=== PATIENT | female | born 1995 | race Caucasian/White ===

== ENCOUNTER 2017-07-26 20:23 | Outpatient (CLI) | payer MEDICAID, OTHER ==
[~2017-07-26] VITALS: Ht 170.2 cm; Wt 108.2 kg
[2017-07-26 20:40] VITALS: BP 135/74
[2017-07-26] MEDS ORDERED: PREN1TAB86 PO (21:04)
[2017-07-26] MEDS ORDERED: LACTATED RINGERS 1,000 ML IV ONE (21:15)
[2017-07-26 21:30] VITALS: BP 121/73
[2017-07-26 23:13] VITALS: BP 121/73
--- NOTE | 2017-07-27 11:32 | Physician Query-Final Dx ---
TIANNA COPELAND 07/27/17 1132: Clinic Account Progress/Dx Physician Query: Please give diagnosis Date of Service Jul 26, 2017 at 20:23 HECTOR CHRISTOPHER MD 07/28/17 1142: Clinic Account Progress/Dx DIAGNOSIS: Diagnosis 32 weeks gestation Contractions without cervical change TIANNA COPELAND Jul 27, 2017 11:32 HECTOR CHRISTOPHER MD Jul 28, 2017 11:42
== END 2017-07-26 23:13 | disposition home or self-care (01) ==
LOC: WSo 20:23 → LDRP 20:23 → WSo 23:13
PROVIDERS: ATTEND Family Medicine
DX: O47.03 False labor before 37 completed weeks of gestation, third trimester (principal); Z3A.32 32 weeks gestation of pregnancy
CPT/HCPCS: 96360; 99214

== ENCOUNTER → 2017-08-23 | Outpatient (CLI) | payer MEDICAID ==
[~2017-08-23] MED LIST: PREN1TAB86 PO
--- NOTE | 2017-08-23 16:58 | Diagnostic Imaging Report ---
INDICATION: Preeclampsia. TECHNIQUE: The biophysical profile was performed in the routine fashion. FINDINGS: The fetus scored 2 out of 2 in breathing, movement, posture and tone, and amniotic fluid. The amniotic fluid index is 13.8 cm. The fetus is in cephalic presentation with a heart rate of 123 BPM. The placenta is anterior. IMPRESSION: The biophysical profile score is 8 out of 8 points. Dictated by: Dictated on workstation # [id number]
[2017-08-23 17:16] LABS: BASOPHILS % (AUTO) 0 % (0-10); EOSINOPHILS # (AUTO) 0.1 10^3/uL (0.0-0.3); EOSINOPHILS % (AUTO) 2 % (0-10); LYMPHOCYTES # (AUTO) 1.4 X 10^3 (1.0-4.0); LYMPHOCYTES % (AUTO) 16 % (12-44); MEAN CORPUSCULAR HEMOGLOBIN 32 PG (25-34); MEAN CORPUSCULAR HGB CONC 34 G/DL (32-36); MEAN CORPUSCULAR VOLUME 95 FL (80-99); MEAN PLATELET VOLUME 10.2 FL (7.4-10.4); MONOCYTES # (AUTO) 0.7 X 10^3 (0.0-1.0); MONOCYTES % (AUTO) 8 % (0-12); NEUTROPHILS # (AUTO) 6.6 X 10^3 (1.8-7.8); NEUTROPHILS % (AUTO) 75 % (42-75); PLATELET COUNT 243 10^3/uL (130-400); RED BLOOD COUNT 3.61 10^6/uL (4.35-5.85); RED CELL DISTRIBUTION WIDTH 12.2 % (10.0-14.5); WHITE BLOOD COUNT 8.8 10^3/uL (4.3-11.0)
[2017-08-23 17:18] LABS: PROTEIN/CREATININE RATIO 0.06
[2017-08-23 17:35] LABS: ALANINE AMINOTRANSFERASE 27 U/L (0-55); ALBUMIN 3.2 GM/DL (3.2-4.5); ANION GAP 8 MMOL/L (5-14); ASPARTATE AMINO TRANSFERASE 17 U/L (5-34); BILIRUBIN,TOTAL 0.3 MG/DL (0.1-1.0); BLOOD UREA NITROGEN 8 MG/DL (7-18); BUN/CREATININE RATIO 10; CALCIUM 8.8 MG/DL (8.5-10.1); CARBON DIOXIDE 19 MMOL/L (21-32); CHLORIDE 108 MMOL/L (98-107); GFR ESTIMATED > 60; GLUCOSE 89 MG/DL (70-105); LACTATE DEHYDROGENASE 150 U/L (125-220); POTASSIUM 3.9 MMOL/L (3.6-5.0); SODIUM 135 MMOL/L (135-145); TOTAL PROTEIN 6.2 GM/DL (6.4-8.2); URIC ACID 4.5 MG/DL (2.6-7.2)
== END ==
LOC: RAD 16:34
PROVIDERS: ATTEND Family Medicine
DX: O13.3 Gestational [pregnancy-induced] hypertension without significant proteinuria, third trimester (principal); O36.8130 Decreased fetal movements, third trimester, not applicable or unspecified; Z3A.00 Weeks of gestation of pregnancy not specified
CPT/HCPCS: 36415; 76819; 80053; 82570; 83615; 84156; 84550; 85025; 86780

== ENCOUNTER 2017-09-01 13:18 | Outpatient (CLI) | payer MEDICAID ==
[~2017-09-01] VITALS: Ht 170.2 cm; Wt 109.1 kg
[2017-09-01 13:35] VITALS: BP 128/70
[2017-09-01 13:48] LABS: BILIRUBIN,URINE NEGATIVE (NEGATIVE); KETONES,URINE NEGATIVE (NEGATIVE); LEUKOCYTE ESTERASE ,URINE 2+ (NEGATIVE); NITRITE,URINE NEGATIVE (NEGATIVE); PH,URINE 7 (5-9); PROTEIN,URINE NEGATIVE (NEGATIVE); UROBILINOGEN,URINE NORMAL (NORMAL)
[2017-09-01 14:00] VITALS: BP 115/59
[2017-09-01 14:35] VITALS: BP 118/65
--- NOTE | 2017-09-02 07:20 | Physician Query-Final Dx ---
TIANNA COPELAND 09/02/17 0720: Clinic Account Progress/Dx Physician Query: Please give diagnosis Date of Service Sep 01, 2017 at 13:18 SHAUNNA PADRON DO 09/10/17 0711: Clinic Account Progress/Dx DIAGNOSIS: Diagnosis 37 week GA Contractions, not in active labor TIANNA COPELAND Sep 02, 2017 07:20 SHAUNNA PADRON DO Sep 10, 2017 07:11
== END 2017-09-01 15:00 | disposition home or self-care (01) ==
LOC: WSo 13:18 → LDRP 13:19 → WSo 15:00
PROVIDERS: ATTEND Family Medicine
DX: O47.1 False labor at or after 37 completed weeks of gestation (principal); Z3A.37 37 weeks gestation of pregnancy
CPT/HCPCS: 81000; 87088; 99213

== ENCOUNTER 2017-09-03 20:49 | Outpatient (CLI) | payer MEDICAID ==
[~2017-09-03] VITALS: Ht 170.2 cm; Wt 108.6 kg
[2017-09-03 21:20] LABS: BILIRUBIN,URINE NEGATIVE (NEGATIVE); KETONES,URINE NEGATIVE (NEGATIVE); LEUKOCYTE ESTERASE ,URINE 3+ (NEGATIVE); NITRITE,URINE NEGATIVE (NEGATIVE); PH,URINE 7 (5-9); PROTEIN,URINE 1+ (NEGATIVE); UROBILINOGEN,URINE 1 MG/DL (NORMAL)
[2017-09-03 21:31] LABS: SQUAMOUS EPITHELIAL CELL,UR 25-50 /HPF; WBC,URINE 25-50 /HPF
[2017-09-03] MEDS ORDERED: BUTORPHANOL INJ 2 MG/ML (STADOL) VIAL IV ONE (21:45)
[2017-09-03] MEDS ORDERED: D5 LR IV SOLUTION 1,000 ML IV ONE (21:45)
[2017-09-03] MEDS ORDERED: NITROFURANTOIN 100 MG (MACROBID) CAPSULE PO ONE (21:45)
--- NOTE | 2017-09-05 13:41 | Physician Query-Final Dx ---
TIANNA COPELAND 09/05/17 1341: Clinic Account Progress/Dx Physician Query: Please give diagnosis Date of Service Sep 03, 2017 at 20:49 DARRYL GREENWOOD DO 09/20/17 0745: Clinic Account Progress/Dx DIAGNOSIS: Diagnosis Threatened Labor Urinary Tract Infection in TIANNA COPELAND Sep 05, 2017 13:41 DARRYL GREENWOOD DO Sep 20, 2017 07:45
== END 2017-09-03 23:10 | disposition home or self-care (01) ==
LOC: LDRP 20:49 → WSo 20:49
PROVIDERS: ATTEND Family Medicine
DX: O47.1 False labor at or after 37 completed weeks of gestation (principal); O23.93 Unspecified genitourinary tract infection in pregnancy, third trimester; Z3A.37 37 weeks gestation of pregnancy
CPT/HCPCS: 81000; 87088; 96361; 96374; 99214

== ENCOUNTER 2017-09-13 05:56 | Inpatient (IN) | payer MEDICAID ==
[2017-09-13] VITALS (28 sets, daily range): BP systolic 76–144; BP diastolic 37–88
[~2017-09-13] VITALS: Ht 170.2 cm; Wt 110.4 kg
--- NOTE | 2017-09-13 07:28 | History & Physical-OB ---
OB - Chief Complaint & HPI Date/Time Date of Admission: Date of Admission: Sep 13, 2017 at 5:56 am Time Seen by Provider: 11:40 Chief Complaint/History OB-Reason for Admission/Chief: Induction of Labor Hx : 3 Hx Para: 1102 Expected Date of Delivery: Sep 18, 2017 Gestational Age in Weeks: 39 Gestational Age in Days: 2 Indication for induction: other (gestational hypertension) History of Labs A+, antibody neg, RI. GC/chlamydia neg. HIV/RPR NR. Hep B PENDING. 1 hour glucola normal. GBS neg. Other at 39w2d admitted for IOL due to mild GHTN with blood pressure 148/82 at 36 weeks and 140/78 at last visit. Preeclampsia labs 08/23 unremarkable. Allergies and Home Medications Allergies Coded Allergies: Penicillins (Unverified Allergy, Severe, ANAPHYLAXIS, 07/26/17) Home Medications Vit W-Ca,Fe,FA(<1 mg) 1 Each Tablet, 1 EACH PO DAILY, (Reported) OB - History Hx of Present Care: Yes ([place], records not received) Obstetrical Complications: Gestational Hypertension Other Concerns: THC use early in , per patient report was recommended by initial physician while living in a state with legal THC. Information Induced Hypertension: Yes Maternal Gestational Diabetes: No Hemorrhage: No Obstetrical History Hx : 3 Hx Para: 2 Hx # Term Pregnancies: 1 Hx # Pregnancies: 1 Number of Living Children: 2 Hx Multiple Gestation: No Hx Ectopic : No Hx Stillbirth: No Hx Complication: Yes (placental abruption) Hx Induced Hypertens: Yes Hx Maternal Gestational Diabet: No Hx Hemorrhage: No Delivery History Hx Dystocia: No Hx Forceps Assisted Delivery: No Hx Vacuum Extraction Assisted: No Hx Placenta Abnormality: No Hx Distress: No Hx Large For Gestational Age I: No Hx Small for Gestational Age I: No Hx Section: No Hx Vaginal Delivery Post C-Sec: No Hx Blood Disorders: No Adverse Rxn to Tranfusion: No Patient Past Medical History Denies Social History/Family History HIV/AIDS: No Recent Infectious Disease Expo: No Sexually Transmitted Disease: No Alcohol Use: Denies Use Recreational Drug Use: Yes (THC in another state where legal per report) Smoking Cessation: Current every day smoker Immunizations Tetanus Booster (TDap): Less than 5yrs Date of Influenza Vaccine: Aug 30, 2017 Rubella: immune RPR/VDRL: Negative GBS Status: Negative HBsAG: Unknown OB - Admission Exam Physical Exam Cervical Dilatation: 4cm (per Dr. Mitchell's exam) OB - Assessment/Plan/Diagnosis Assessment Assessment: induction of labor, other (GHTN) Plan Plan: Induction Induction Method: per Pitocin Protocol Other Plan Monitor BP closely, if any elevations, will check preeclampsia labs HECTOR CHRISTOPHER MD Sep 13, 2017 7:28 am
[2017-09-13] MEDS ORDERED: D5 LR IV SOLUTION 1,000 ML IV ONE (07:38)
[2017-09-13] MEDS ORDERED: OXYTOCIN/NORMAL SALINE 500 ML IV SCH ×2 (08:27→13:37)
[2017-09-13] MEDS ORDERED: D5 LR IV SOLUTION 1,000 ML IV SCH (08:27)
[2017-09-13 08:35] LABS: BASOPHILS % (AUTO) 0 % (0-10); EOSINOPHILS # (AUTO) 0.1 10^3/uL (0.0-0.3); EOSINOPHILS % (AUTO) 1 % (0-10); LYMPHOCYTES # (AUTO) 1.6 X 10^3 (1.0-4.0); LYMPHOCYTES % (AUTO) 16 % (12-44); MEAN CORPUSCULAR HEMOGLOBIN 32 PG (25-34); MEAN CORPUSCULAR HGB CONC 34 G/DL (32-36); MEAN CORPUSCULAR VOLUME 94 FL (80-99); MEAN PLATELET VOLUME 10.7 FL (7.4-10.4); MONOCYTES # (AUTO) 0.7 X 10^3 (0.0-1.0); MONOCYTES % (AUTO) 7 % (0-12); NEUTROPHILS # (AUTO) 7.8 X 10^3 (1.8-7.8); NEUTROPHILS % (AUTO) 76 % (42-75); PLATELET COUNT 260 10^3/uL (130-400); RED BLOOD COUNT 3.76 10^6/uL (4.35-5.85); RED CELL DISTRIBUTION WIDTH 12.4 % (10.0-14.5); WHITE BLOOD COUNT 10.2 10^3/uL (4.3-11.0)
[2017-09-13] MEDS ORDERED: SUFENTA 0.6MCG/ML BUPIVA 0.125 100 ML ONE (09:27)
[2017-09-13] MEDS ORDERED: BUPIVACAINE 0.25% 30 ML (SENSORCAINE) VIAL ONE (10:15)
[2017-09-13] MEDS ORDERED: fentaNYL INJECTION 100 MCG/2 ML AMP ONE (10:15)
--- NOTE | 2017-09-13 12:17 | OB Labor & Delivery Record ---
Vag Delivery Note Vag Delivery Note Date of Delivery: 09/13/17 Preoperative Diagnosis: Eva Cavazos is a (22 /Para 3 / 2, Gestational Age (wks)39with 2days Postoperative Diagnosis: Same Surgeon: HECTOR CHRISTOPHER Anesthesia: epidural Delivery Type: spontaneous vaginal delivery Findings: Viable female infant, apgars 8/9, weight 7#3 Lacerations: abrasions only Intact placenta with 3 vessel cord. Nuchal cord x 2 easily reduced, No body cord or shoulder dystocia Estimated Blood Loss: 300 ml Complications: None Condition: Stable Description of Procedure: The patient is a who presented for IOL. She was admitted and informed consent was obtained. Her labor course was remarkable for rapid progression. She progressed to complete dilatation and began to push. She was then set up for delivery. The 's head was delivered atraumatically in the JANE position. Nuchal cord x 2 reduced. The shoulders and remainder of the infant's body were then delivered without difficulty. Upon delivery, the infant was vigorous and was placed on maternal abdomen. After a brief delay the cord was doubly clamped and cut and the was handed off to the pediatric staff. An intact placenta with 3-vessel cord delivered via Marlin and there was found to be minimal bleeding.~ Vigorous fundal massage was performed and the fundus was found to be firm. IV oxytocin was given. Examination of the vagina and perineum revealed abrasions only. Following the repair, sponge, instrument and needle counts were correct. Mom and baby were both in stable condition in the labor suite. Vitals - Labs Labs Laboratory Tests 09/13/17 07:55: White Blood Count 10.2, Red Blood Count 3.76L, Hemoglobin 12.2, Hematocrit 36, Mean Corpuscular Volume 94, Mean Corpuscular Hemoglobin 32, Mean Corpuscular Hemoglobin Concent 34, Red Cell Distribution Width 12.4, Platelet Count 260, Mean Platelet Volume 10.7H, Neutrophils (%) (Auto) 76H, Lymphocytes (%) (Auto) 16, Monocytes (%) (Auto) 7, Eosinophils (%) (Auto) 1, Basophils (%) (Auto) 0, Neutrophils # (Auto) 7.8, Lymphocytes # (Auto) 1.6, Monocytes # (Auto) 0.7, Eosinophils # (Auto) 0.1, Basophils # (Auto) 0.0 HECTOR CHRISTOPHER MD Sep 13, 2017 12:17 pm
[2017-09-13] MEDS ORDERED: WITCH HAZEL(TUCKS) 40 EA JAR TOP PRN (13:45)
[2017-09-13] MEDS ORDERED: MEASLES,MUMPS,RUBELLA 1 EA INJ SQ ONE (13:45)
[2017-09-13] MEDS ORDERED: TETANUS,DIPTH,PERTUSS P/F (BOOSTRIX) 0.5 ML VIAL IM ONE (13:45)
[2017-09-13] MEDS ORDERED: BENZOCAINE/MENTHOL (DERMOPLAST) 56 ML CAN TP PRN (13:45)
[2017-09-13] MEDS: IBUPROFEN 600 MG (MOTRIN) TAB PO SCH ×2 (14:00→19:40)
[2017-09-13] MEDS ORDERED: CATHETER FLUSH 10 ML SYR IV SCH ×2 (14:00)
[2017-09-13] MEDS ORDERED: LACTATED RINGERS 1,000 ML IV ONE (14:06)
[2017-09-13] MEDS ORDERED: CATHETER FLUSH 10 ML SYR IV PRN (14:15)
[2017-09-13] MEDS ORDERED: diphenhydrAMINE 50 MG/ML INJ (BENADRYL) IV PRN (14:15)
[2017-09-13] MEDS ORDERED: EPIDURAL (SUFENTA 0.6MCG/ML BUPIVA 0.125%) 100 ML BAG EPI SCH (14:15)
[2017-09-13] MEDS ORDERED: ONDANSETRON 4 MG/2 ML (SDV) Z0FRAN IV PRN (14:15)
[2017-09-13] MEDS ORDERED: NALOXONE 0.4 MG/ML 1 ML (NARCAN) VIAL IV PRN (14:15)
[2017-09-13] MEDS: HYDROcodone/APAP 5 MG/325 MG (LORTAB) TAB PO PRN ×2 (19:40→23:48)
[2017-09-14] MEDS: IBUPROFEN 600 MG (MOTRIN) TAB PO SCH ×3 (02:14→15:25)
[2017-09-14 04:41] VITALS: BP 109/60
[2017-09-14] MEDS: HYDROcodone/APAP 5 MG/325 MG (LORTAB) TAB PO PRN ×3 (04:41→13:16)
[2017-09-14 06:03] LABS: BASOPHILS % (AUTO) 0 % (0-10); EOSINOPHILS # (AUTO) 0.1 10^3/uL (0.0-0.3); EOSINOPHILS % (AUTO) 2 % (0-10); LYMPHOCYTES # (AUTO) 2.2 X 10^3 (1.0-4.0); LYMPHOCYTES % (AUTO) 27 % (12-44); MEAN CORPUSCULAR HEMOGLOBIN 33 PG (25-34); MEAN CORPUSCULAR HGB CONC 34 G/DL (32-36); MEAN CORPUSCULAR VOLUME 95 FL (80-99); MEAN PLATELET VOLUME 10.6 FL (7.4-10.4); MONOCYTES # (AUTO) 0.7 X 10^3 (0.0-1.0); MONOCYTES % (AUTO) 9 % (0-12); NEUTROPHILS # (AUTO) 5.3 X 10^3 (1.8-7.8); NEUTROPHILS % (AUTO) 63 % (42-75); PLATELET COUNT 234 10^3/uL (130-400); RED BLOOD COUNT 3.45 10^6/uL (4.35-5.85); RED CELL DISTRIBUTION WIDTH 12.1 % (10.0-14.5); WHITE BLOOD COUNT 8.4 10^3/uL (4.3-11.0)
[2017-09-14] MEDS ORDERED: PRENATAL VITAMIN 1 EA TAB PO SCH (07:00)
[2017-09-14 08:35] VITALS: BP 122/84
--- NOTE | 2017-09-14 10:13 | Progress Note (SOAP) ---
VALARIE DURANT MED STUDENT 09/14/17 1013: Subjective Subjective/Events-last exam Patient was seen this morning. She is feeling well and her pain is under control and has been able to get up and walk around during the night. She is without complications. Denies passing large clots and says that her vaginal bleeding has decreased. She is has not had a bowel movement but is has passed gas. Her Hep B results is still pending. Patient has no concerns for today. Review of Systems Date Seen by Provider: Sep 14, 2017 Time Seen by Provider: 09:00 Pulmonary: No Cough Cardiovascular: No: Chest Pain Gastrointestinal: No: Nausea, Vomiting Neurological: No: Weakness Objective Exam Last Set of Vital Signs Vital Signs Date Time Temp Pulse Resp B/P (MAP) Pulse Ox O2 Delivery O2 Flow Rate FiO2 09/14/17 08:35 98.0 71 18 122/84 99 Room Air Capillary Refill : General: Alert, Oriented X3, No Acute Distress Lungs: Normal Air Movement Heart: Regular Rate Abdomen: Soft Psych/Mental Status: Mental Status NL Results/Procedures Lab Laboratory Tests 09/14/17 05:30: White Blood Count 8.4, Red Blood Count 3.45L, Hemoglobin 11.2L, Hematocrit 33L, Mean Corpuscular Volume 95, Mean Corpuscular Hemoglobin 33, Mean Corpuscular Hemoglobin Concent 34, Red Cell Distribution Width 12.1, Platelet Count 234, Mean Platelet Volume 10.6H, Neutrophils (%) (Auto) 63, Lymphocytes (%) (Auto) 27 , Monocytes (%) (Auto) 9, Eosinophils (%) (Auto) 2, Basophils (%) (Auto) 0, Neutrophils # (Auto) 5.3, Lymphocytes # (Auto) 2.2, Monocytes # (Auto) 0.7, Eosinophils # (Auto) 0.1, Basophils # (Auto) 0.0 Assessment/Plan Assessment/Plan Admission Dx Vaginal Delivery Plan 22 yo uncomplicated vaginal delivery Wait for Hep B result and baby's bilirubin Will likely discharge tomorrow. Clinical Quality Measures DVT/VTE Risk/Contraindication: Risk Factor Score Per Nursin RFS Level Per Nursing on Admit: 2=Moderate MICHELLE CARTWRIGHT MD 09/14/17 1041: Subjective Subjective/Events-last exam Reviewed student's HPI with patient Objective Results/Procedures Lab Hgb 12.2--> 11.1 Assessment/Plan Assessment/Plan Plan 22 yo PPD #1 s/p of term female - No concerns today - Pain well controlled with ambulation and PO meds - Hgb stable, continue PNV - Breast feeding - Possible d/c later today VALARIE DURANT MED STUDENT Sep 14, 2017 10:13 MICHELLE CARTWRIGHT MD Sep 14, 2017 10:41
--- NOTE | 2017-09-14 12:38 | Anesthesia-Regional Post-Op ---
Regional Patient Condition Mental Status: Alert, Oriented x3 Circulation: Same as Pre-Op Headache: Absent Sensation: Full Recovery Motor Block: Absent Post Op Complications Complications None Follow Up Care/Instructions Patient Instructions None needed. Anesthesia/Patient Condition Patient is doing well, no complaints, stable vital signs, no apparent adverse anesthesia problems. No complications reported per nursing. D/C home per [facility] [place] Criteria: No FERNANDO LOCKHART CRNA Sep 14, 2017 12:38
[2017-09-14 13:05] VITALS: BP 107/67
[2017-09-14 15:25] VITALS: BP 120/78
== END 2017-09-14 17:10 | disposition home or self-care (01) | DRG 775 ==
LOC: LDRP 05:56
PROVIDERS: ADMIT Family Medicine; ATTEND Family Medicine
PROC: 10E0XZZ Delivery of Products of Conception, External Approach (ICD-10-PCS; principal; 2017-09-13)
DX: O13.3 Gestational [pregnancy-induced] hypertension without significant proteinuria, third trimester (principal); O99.333 Smoking (tobacco) complicating pregnancy, third trimester; F17.210 Nicotine dependence, cigarettes, uncomplicated; O69.81X0 Labor and delivery complicated by cord around neck, without compression, not applicable or unspecified; O62.3 Precipitate labor; Z3A.39 39 weeks gestation of pregnancy; Z37.0 Single live birth
CPT/HCPCS: 36415; 85025; 86850; 86900; 86901; 87340